=== PATIENT | male | born 1975 | race Caucasian/White ===

== ENCOUNTER 2018-01-23 08:11 | Emergency (ER) | payer BC ==
[~2018-01-23] VITALS: Ht 170.2 cm; Wt 90.9 kg
[2018-01-23 08:17] VITALS: BP 171/97; TEMP 98.9
[2018-01-23 09:25] LABS: COLLECTION METHOD CLEAN CATCH
[2018-01-23 09:33] LABS: BASO % 0.3 % (0.0-2.0); EOS # 0.1 (0.0-0.7); EOS % 1.3 % (0-4.0); GRAN # 8.1 (1.4-6.5); GRAN % 74.6 % (42.2-75.2); HEMATOCRIT 42.1 % (42.0-52.0); LYMPH # 1.8 (1.2-3.4); LYMPH % 16.6 % (20.0-51.0); MEAN CELL VOLUME 88 fl (80.0-100.0); MEAN CORPUSCULAR HEMOGLOBIN 29 pg (27.0-31.0); MEAN CORPUSCULAR HGB CONC 33 g/dl (33.0-37.0); MEAN PLATELET VOLUME 9.2 fl (7.4-10.4); MONO # 0.8 (0.1-0.6); PLATELET COUNT 356 K/mm3 (130-400); RED BLOOD COUNT 4.76 M/mm3 (4.20-5.60); REDCELL DISTRIBUTION WIDTH-CV 12.4 % (11.5-14.5)
[2018-01-23 09:34] LABS: MUCOUS Present /lpf; PH 5 (5-8); SQUAMOUS EPITHELIAL 0-2 /hpf; URINE APPEARANCE Hazy; URINE BACTERIA None Seen /hpf; URINE BILIRUBIN Negative (NEGATIVE); URINE BLOOD 3+ (NEGATIVE); URINE COLOR Yellow; URINE GLUCOSE Negative (NEGATIVE); URINE KETONE Negative (NEGATIVE); URINE LEUKOCYTE ESTERASE Negative (NEGATIVE); URINE NITRATE Negative (NEGATIVE); URINE PROTEIN(semi-quant) 1+ (NEGATIVE); URINE RBC >50 /hpf; URINE UROBILINOGEN Negative (NEGATIVE)
[2018-01-23 09:40] LABS: ALBUMIN 4.5 gm/dL (3.5-5.0); BILIRUBIN,TOTAL 0.4 mg/dL (0.0-1.0); CALCIUM 9.2 mg/dL (8.4-10.2); CREATININE, serum 1.3 mg/dL (0.66-1.25); POTASSIUM 4.1 mmol/L (3.4-5.0); TOTAL PROTEIN 8.7 gm/dL (6.4-8.2)
[2018-01-23] MEDS ORDERED: NORCO 325 MG-51 TAB PO (10:15)
[2018-01-23] MEDS ORDERED: FLOMAX 0.40.4 MG/CAP PO (10:15)
[2018-01-23] MEDS ORDERED: ZOFRAN ODT4 MG PO (10:15)
[2018-01-23 10:32] VITALS: PULSE 79
== END 2018-01-23 10:32 | disposition home or self-care (01) ==
LOC: COL.ER 08:11
PROVIDERS: Physician Assistant
DX: N20.0 Calculus of kidney (principal); I10 Essential (primary) hypertension; Z87.442 Personal history of urinary calculi
CPT/HCPCS: J1885; J2405; J3010; J7030

== ENCOUNTER → 2022-03-28 | Outpatient (CLI) | payer OTHER ==
[~2022-03-28] MED LIST: FLOMAX 0.40.4 MG/CAP PO; NORCO 325 MG-51 TAB PO; ZOFRAN ODT4 MG PO
== END ==
LOC: COL.RAD 09:18
DX: M75.121 Complete rotator cuff tear or rupture of right shoulder, not specified as traumatic (principal); S46.811A Strain of other muscles, fascia and tendons at shoulder and upper arm level, right arm, initial encounter; S43.081A Other subluxation of right shoulder joint, initial encounter; X58.XXXA Exposure to other specified factors, initial encounter
CPT/HCPCS: A9585; Q9967

== ENCOUNTER 2022-04-20 21:14 | Inpatient (IN) | payer OTHER ==
[~2022-04-20] VITALS: Ht 172.7 cm; Wt 88.6 kg
[2022-04-20 21:48] LABS: BASO # 0.1 K/mm3 (0.0-0.2); BASO % 0.6 % (0.0-2.0); EOS # 0.2 K/mm3 (0.0-0.7); EOS % 1.4 % (0.0-4.0); GRAN # 10.1 K/mm3 (1.4-6.5); GRAN % 71.9 % (42.2-75.2); HEMATOCRIT 39.1 % (42.0-52.0); HEMOGLOBIN 12.4 g/dl (13.5-18.0); LYMPH # 2.5 K/mm3 (1.2-3.4); LYMPH % 17.7 % (20.0-51.0); MEAN CELL VOLUME 91 fl (80.0-100.0); MEAN CORPUSCULAR HEMOGLOBIN 29 pg (27-31); MEAN CORPUSCULAR HGB CONC 32 g/dl (33.0-37.0); MONO # 1.1 K/mm3 (0.1-0.6); MONO % 8.1 % (1.7-9.3); PLATELET COUNT 283 K/mm3 (130-400); REDCELL DISTRIBUTION WIDTH-CV 13.2 % (11.5-14.5)
[2022-04-20 22:00] LABS: ALANINE AMINOTRANSFERASE 18 U/L (0-55); ALBUMIN 3.9 gm/dL (3.5-5.0); ALKALINE PHOSPHATASE 64 U/L (40-150); ANION GAP 13 mmol/L (7-16); AST,SGOT 23 U/L (5-34); BILIRUBIN,TOTAL 0.4 mg/dL (0.2-1.2); BLOOD UREA NITROGEN 10 mg/dL (9-21); CARBON DIOXIDE 25 mmol/L (22-29); CHLORIDE 102 mmol/L (98-107); CREATININE, serum 0.92 mg/dL (0.72-1.25); GLUCOSE 96 mg/dL (70-99); SODIUM 140 mmol/L (136-145); TOTAL PROTEIN 7.5 gm/dL (6.2-8.1)
[2022-04-20 22:19] LABS: TSH w REFLEX 2.083 uIU/mL (0.350-4.940)
[2022-04-20 22:20] LABS: TROPONIN-I < 0.010 ng/mL (0.00-0.033)
[2022-04-20 23:02] LABS: COLLECTION METHOD CLEAN CATCH
[2022-04-20 23:07] LABS: MUCOUS Present (NOT PRESENT); PH 7 (5-8); SQUAMOUS EPITHELIAL None Seen /hpf (0-10); URINE APPEARANCE Clear (CLEAR/HAZY); URINE BACTERIA None Seen /hpf (NONE SEEN); URINE BLOOD 1+ (NEGATIVE); URINE COLOR Straw (YELLOW); URINE GLUCOSE Negative (NEGATIVE); URINE KETONE Negative (NEGATIVE); URINE NITRATE Negative (NEGATIVE); URINE PROTEIN(semi-quant) Negative (NEGATIVE); URINE UROBILINOGEN Negative (NEGATIVE)
[2022-04-20 23:28] LABS: ARTERIAL BLD GAS O2 SATURATION 96.3 % (92-100); ARTERIAL BLD GAS TCO2 CT 29.8; ARTERIAL BLOOD GAS BASE EXCESS 3.4 (-2-2); ARTERIAL BLOOD GAS HCO3 28.4 meq/L (22-26); ARTERIAL BLOOD GAS PCO2 44.9 mmHg (35-45); ARTERIAL BLOOD GAS pH 7.42 (7.35-7.45)
[2022-04-20] MEDS ORDERED: COZAAR 50MG50 MG/TAB PO (23:36)
[2022-04-21] MEDS ORDERED: PRAVACHOL 20MG20 MG PO (02:04)
[2022-04-21] MEDS ORDERED: LEXAPRO 10MG10 MG PO (02:04)
[2022-04-21] MEDS ORDERED: OZEMPIC0.25 MG/0. (02:04)
[2022-04-21] MEDS ORDERED: DESYREL 100MG100 MG PO (02:04)
[2022-04-21] MEDS ORDERED: CIALIS5 MG (02:05)
[2022-04-21 02:45] VITALS: BP 146/85; PULSE 81; TEMP 98.7
--- NOTE | 2022-04-21 03:03 | NUR ---
PT ARRIVED TO ROOM AND TRANSFERRED TO BED. PT ON 5L VIA OXYMASK. PT REPORTS MANAGABLE RIGHT SHOULDER PAIN.
[2022-04-21 03:58] VITALS: BP 1145/82; PULSE 79; TEMP 98.5
[2022-04-21 07:47] LABS: BASO # 0.1 K/mm3 (0.0-0.2); BASO % 0.6 % (0.0-2.0); EOS # 0.1 K/mm3 (0.0-0.7); EOS % 1.3 % (0.0-4.0); GRAN # 6.9 K/mm3 (1.4-6.5); GRAN % 66.2 % (42.2-75.2); HEMOGLOBIN 11.5 g/dl (13.5-18.0); LYMPH # 2.5 K/mm3 (1.2-3.4); LYMPH % 23.7 % (20.0-51.0); MEAN CELL VOLUME 91 fl (80.0-100.0); MEAN CORPUSCULAR HEMOGLOBIN 29 pg (27-31); MEAN CORPUSCULAR HGB CONC 32 g/dl (33.0-37.0); MEAN PLATELET VOLUME 9.9 fl (7.4-10.4); MONO # 0.8 K/mm3 (0.1-0.6); MONO % 7.9 % (1.7-9.3); PLATELET COUNT 257 K/mm3 (130-400); RED BLOOD COUNT 3.98 M/mm3 (4.20-5.60); REDCELL DISTRIBUTION WIDTH-CV 13.2 % (11.5-14.5)
[2022-04-21 08:00] VITALS: BP 146/85; PULSE 72; TEMP 98.3
[2022-04-21 08:07] LABS: CALCIUM 8.8 mg/dL (8.4-10.2); CREATININE, serum 0.88 mg/dL (0.72-1.25); MAGNESIUM 1.8 mg/dL (1.6-2.6); POTASSIUM 3.8 mmol/L (3.5-4.5)
[2022-04-21 11:33] VITALS: BP 149/85; PULSE 76; TEMP 98.9
[2022-04-21 16:00] VITALS: BP 131/85; PULSE 78; TEMP 98
--- NOTE | 2022-04-21 19:38 | NUR ---
TX GIVEN VIA MOUTHPIECE, TOLERATED WELL. FAMILY X 1 AT BEDSIDE.
[2022-04-21 21:16] VITALS: BP 138/92; PULSE 70; TEMP 98.8
[2022-04-22 00:43] VITALS: BP 126/73; PULSE 97; TEMP 98.4
[2022-04-22 04:39] VITALS: BP 143/88; PULSE 69; TEMP 98
[2022-04-22 07:43] VITALS: BP 153/89; PULSE 102; TEMP 98.1
--- NOTE | 2022-04-22 10:46 | NUR ---
SW met with the patient to discuss discharge plan. The patient lives in [place] with his , Jessy (ph#[phone]), and four of their seven children. He reports independence with ADLs and does not have any DME. The patient's PCP is Dr. Susan Bedolla and [facility]. The patient does not have a DPOA-HC in EMR, but he states he believes he has one completed and that he designated his . The patient plans to return home with is family upon discharge. No additional needs at this time. *Discharge plan: home with family*
[2022-04-22 12:47] VITALS: BP 133/88; PULSE 72; TEMP 98
--- NOTE | 2022-04-22 14:24 | NUR ---
Initial visit; Patient thanked City Council Member for stopping by and mentioned that he is a [employer]. Fitz is doing better and hopes to be discharged tomorrow. He is a very pleasant person and nice to visit with. City Council Member wished him well.
[2022-04-22 16:42] VITALS: BP 142/79; PULSE 111; TEMP 98.8
--- NOTE | 2022-04-22 20:01 | NUR ---
TX GIVEN VIA MOUTHPIECE, TOLERATED WELLL. FAMILY X 1 AT BEDSIDE.
[2022-04-22 20:06] VITALS: BP 160/83; PULSE 86; TEMP 98.3
[2022-04-23 00:41] VITALS: BP 142/64; PULSE 106; TEMP 98.7
--- NOTE | 2022-04-23 02:21 | NUR ---
PATIENT IN BED. ALERT AND ORIENTED. HS MEDS PER EMAR. C/O MODERATE PAIN AND PRN PERCOCET GIVEN.
[2022-04-23 04:34] VITALS: BP 147/90; PULSE 88; TEMP 98.7
[2022-04-23 07:08] VITALS: BP 152/85; PULSE 84; TEMP 98.2
[2022-04-23] MEDS ORDERED: MONODOX100 PO (08:56)
[2022-04-23] MEDS ORDERED: PROAIR HFA0.09 MG/AC IH (08:58)
[2022-04-23] MEDS ORDERED: PERCOCET 325 MG1 TA2 PO (08:59)
[2022-04-23 11:01] VITALS: BP 150/82; PULSE 89; TEMP 98.1
--- NOTE | 2022-04-23 11:27 | NUR ---
PATIENT GIVEN ALL DISCHARGE INSTRUCTIONS AND EDUCATION.PATIENT LEFT IN STABLE CONDITION IN THE CARE OF HIS .
== END 2022-04-23 11:28 | disposition home or self-care (01) | DRG 871 ==
LOC: COL.ER 21:14 → SURG 04-21 01:22
PROVIDERS: Emergency Medicine; Student in an Organized Health Care Education/Training Program; ADMIT Internal Medicine
DX: A41.9 Sepsis, unspecified organism (principal); J18.9 Pneumonia, unspecified organism; J96.01 Acute respiratory failure with hypoxia; E66.2 Morbid (severe) obesity with alveolar hypoventilation; R51.9 Headache, unspecified; R47.81 Slurred speech; I10 Essential (primary) hypertension; E78.5 Hyperlipidemia, unspecified; E11.9 Type 2 diabetes mellitus without complications; F32.A Depression, unspecified; Z20.822 Contact with and (suspected) exposure to COVID-19; Z68.29 Body mass index [BMI] 29.0-29.9, adult
CPT/HCPCS: A9284; J0696; J1650; J1885; J2405; J3010; J7120; Q9967

== ENCOUNTER 2024-04-02 14:07 | Emergency (ER) | payer OTHER ==
[~2024-04-02] VITALS: Ht 172.7 cm; Wt 90.9 kg
[~2024-04-02 14:07] MED LIST changes: +CIALIS5 MG; +COZAAR 50MG50 MG/TAB PO; +DESYREL 100MG100 MG PO; +LEXAPRO 10MG10 MG PO; +MONODOX100 PO; +OZEMPIC0.25 MG/0.; +PERCOCET 325 MG1 TA2 PO; +PRAVACHOL 20MG20 MG PO; +PROAIR HFA0.09 MG/AC IH
[2024-04-02 14:14] VITALS: TEMP 97.5
[2024-04-02] MEDS ORDERED: Ketorolac 15 MG/ML VIAL IV ONE (14:30)
[2024-04-02] MEDS ORDERED: diphenhydrAMINE 50 MG/ML 1 ML VIAL IV ONE (14:30)
[2024-04-02 14:31] LABS: BASO # 0.1 K/mm3 (0.0-0.2); BASO % 0.4 % (0.0-2.0); EOS # 0.1 K/mm3 (0.0-0.7); EOS % 0.5 % (0.0-4.0); HEMATOCRIT 44.7 % (42.0-52.0); HEMOGLOBIN 15.2 g/dl (13.5-18.0); LYMPH # 1.8 K/mm3 (1.2-3.4); LYMPH % 14.1 % (20.0-51.0); MEAN CELL VOLUME 86 fl (80.0-100.0); MEAN CORPUSCULAR HEMOGLOBIN 29 pg (27-31); MEAN CORPUSCULAR HGB CONC 34 g/dl (33.0-37.0); MEAN PLATELET VOLUME 9.4 fl (7.4-10.4); MONO # 0.6 K/mm3 (0.1-0.6); MONO % 4.8 % (1.7-9.3); PLATELET COUNT 330 K/mm3 (130-400); RED BLOOD COUNT 5.19 M/mm3 (4.20-5.60); REDCELL DISTRIBUTION WIDTH-CV 12.8 % (11.5-14.5)
[2024-04-02 14:45] LABS: ALBUMIN 4.5 g/dL (3.5-5.0); BILIRUBIN,TOTAL 0.5 mg/dL (0.2-1.2); CALCIUM 10.3 mg/dL (8.4-10.2); CREATININE, serum 1.19 mg/dL (0.72-1.25); POTASSIUM 3.9 mEq/L (3.5-4.5); TOTAL PROTEIN 8.4 g/dl (6.2-8.1)
[2024-04-02] MEDS ORDERED: NORCO 325 MG-51 TAB PO (15:24)
[2024-04-02 15:32] VITALS: BP 128/105; PULSE 78
== END 2024-04-02 15:38 | disposition home or self-care (01) ==
LOC: COL.ER 14:07
PROVIDERS: Personal Emergency Response Attendant
DX: I10 Essential (primary) hypertension (principal); Z79.899 Other long term (current) drug therapy
CPT/HCPCS: J0780; J1200; J1885

== ENCOUNTER 2024-04-28 23:24 | Emergency (ER) | payer OTHER ==
[~2024-04-28] VITALS: Ht 170.2 cm; Wt 86.4 kg
[2024-04-28] MEDS ORDERED: NS 1,000 ML IV ONE (23:45)
[2024-04-28 23:49] VITALS: TEMP 97.5
[2024-04-29 00:24] LABS: ALBUMIN 4.3 g/dL (3.5-5.0); BILIRUBIN,TOTAL 0.3 mg/dL (0.2-1.2); CALCIUM 9.6 mg/dL (8.4-10.2); CREATININE, serum 1.43 mg/dL (0.72-1.25); POTASSIUM 3.9 mEq/L (3.5-4.5)
[2024-04-29 00:27] LABS: INR 1.1 (0.8-3.0); PROTHROMBIN TIME 11.7 SECONDS (9.7-12.8)
[2024-04-29 00:29] LABS: HEMATOCRIT 42.2 % (42.0-52.0); HEMOGLOBIN 13.8 g/dl (13.5-18.0); MEAN CELL VOLUME 91 fl (80.0-100.0); MEAN CORPUSCULAR HEMOGLOBIN 30 pg (27-31); MEAN CORPUSCULAR HGB CONC 33 g/dl (33.0-37.0); PARTIAL THROMBOPLASTIN TIME 29.1 SECONDS (26.0-37.0); PLATELET COUNT 330 K/mm3 (130-400); RED BLOOD COUNT 4.66 M/mm3 (4.20-5.60); REDCELL DISTRIBUTION WIDTH-CV 12.9 % (11.5-14.5)
[2024-04-29 00:30] LABS: COLLECTION METHOD CLEAN CATCH
[2024-04-29 00:44] LABS: TSH w REFLEX 3.488 uIU/mL (0.350-4.940)
[2024-04-29 00:45] LABS: URINE APPEARANCE CLEAR (CLEAR/HAZY); URINE BLOOD NEGATIVE (NEGATIVE); URINE COLOR YELLOW (YELLOW); URINE GLUCOSE NEGATIVE (NEGATIVE); URINE KETONE NEGATIVE (NEGATIVE); URINE NITRATE NEGATIVE (NEGATIVE); URINE PROTEIN(semi-quant) NEGATIVE (NEGATIVE)
[2024-04-29] MEDS ORDERED: Iohexol 300 - 100 ML VIAL IV ONE (00:50)
[2024-04-29 00:51] LABS: TRICYCLIC ANTIDEPRESS URINE NEGATIVE (NEGATIVE)
[2024-04-29] MEDS ORDERED: NS 100 ML IV ONE (00:51)
[2024-04-29 01:11] LABS: BAND 3 % (0-10); EOSINOPHIL 2 % (0-4); LYMPHOCYTE 29 % (20.0-51.0); NEUTROPHILS 58 % (42.0-75.2)
[2024-04-29] MEDS ORDERED: NS 1,000 ML IV ONE (01:30)
[2024-04-29] MEDS ORDERED: Ketorolac 30 MG/ML VIAL IV ONE (02:00)
[2024-04-29] MEDS ORDERED: diphenhydrAMINE 50 MG/ML 1 ML VIAL IV ONE (02:00)
[2024-04-29] MEDS ORDERED: PAMELOR 25MG25 MG PO (02:42)
[2024-04-29 02:58] VITALS: BP 168/105; PULSE 96
== END 2024-04-29 02:58 | disposition home or self-care (01) ==
LOC: COL.ER 23:24
PROVIDERS: Family Medicine
DX: G43.919 Migraine, unspecified, intractable, without status migrainosus (principal); F43.0 Acute stress reaction; F45.9 Somatoform disorder, unspecified
CPT/HCPCS: J0780; J1200; J1885; J7030; Q9967

== ENCOUNTER → 2024-05-17 | Outpatient (CLI) | payer OTHER ==
[~2024-05-17] MED LIST changes: +PAMELOR 25MG25 MG PO
== END ==
LOC: COL.CARD 09:38
DX: R29.90 Unspecified symptoms and signs involving the nervous system (principal)